=== PATIENT | male | born 1945 | race Caucasian/White ===

== ENCOUNTER → 2016-08-04 | Outpatient (CLI) | payer MEDICARE ==
[~2016-08-04] MED LIST: CEPH-507 PO; SULF1TAB35 PO
[2016-08-04 17:55] VITALS: BP 123/76
--- NOTE | 2016-08-04 17:55 | Urgent Care T Sheet Gen (E) ---
Intake General Temperature (Fahrenheit): 99.5 Pulse: 107 Blood Pressure Systolic: 123 Blood Pressure Diastolic: 76 Respirations: 18 SPO2: 97 History of Present Illness Initial Comments Patient presents with a fluid filled sac to the R posterior elbow. Has had bursitis in the past. Patient denies any injury to the elbow. 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 Fluid built up a few weeks ago but had been well controlled with compression wrap, ibuprofen and ice. Over the past few days however it hasn't responded to the above treatment. No fever or redness to the area. States it doesn't hurt it's just there. Allergies: Coded Allergies: No Known Allergies (Verified Allergy, 11/07/12) Home Meds Active Scripts Cephalexin (Keflex)500 Mg Capsule2 Cap PO BID #28 CAP Prov:MADAN VELAZQUEZ MD 12/18/13 Sulfamethoxazole/Trimethoprim (Bactrim DS)1 Each Tablet2 Tab PO BID #28 TAB Prov:MADAN VELAZQUEZ MD 12/18/13 Respiratory Constitutional Symptoms: No syptoms reported EENTM: No symptoms reported Respiratory: No symptoms reported Cardiovascular: No symptoms reported Musculoskeletal: Joint swelling All Other Systems Reviewed Remaining Systems: All other systems reviewed with negative findings Past Wjtrbbd-Oshxwg-Axeixv Hx Surgeries/Hospitalizations Hospitalization/Surgery Hx: hernia jordi knee replaced shoulder replaced Respiratory Respiratory History: None Cardiovascular Cardiovascular History: None Reproductive System Sexually Transmitted Diseases: No Gastrointestinal GI/Endocrine History: None HEENT Impaired Vision: Glasses Hearing Impaired: None Integumentary Integumentary History: Other, see comments Comment: eye swelling Psychosocial Behavior Disorders: None Physical Exam Physical Exam General Appearance: WD/WN No apparent distress Skin Exam: Normal color Extremity Exam: Full range of motion (in R elbow) Other (examination of the posterior R elbow reveals a large fluid filled sac, most likely the olecrannon bursa. is not red or warm to the touch. is not painful.) Procedures/Interventions Additional Procedure/Treatment : Progress The R posterior elbow was cleaned using alcohol. I then used approx 1cc of lidocaine to numb the skin. Once numb, I used a 25 gauge 1inch long needle to puncture the bursa. I was able to express 11cc of what appeared to be serosanguineous fluid. Clear not cloudy fluid. Patient tolerated the procedure and the size of the bursa was reduced substantially. Departure Urgent Care Impression Impression: Primary Impression: Olecranon bursitis, right elbow Departure Disposition: 01 HOME OR SELF-CARE Condition: Stable Referrals: FLORENTINO HAY MD (PCP) Additional Instructions: I have sent the fluid aspirate off for culture. Will call once results are known. I doubt the bursa is infected as the joint wasn't red or feverish however need to check just in case. Instructed him to ice the elbow and take ibuprofen 800mg tonight. The body should resorb the remaining fluid Return as needed Patient understands DC instructions. All questions were answered. End of report . CHENG BLACK Aug 04, 2016 17:55
== END ==
LOC: MHUC 17:16
PROVIDERS: ATTEND Physician Assistant
DX: M70.21 Olecranon bursitis, right elbow (principal)